=== PATIENT | female | born 1965 | race Caucasian/White ===

== ENCOUNTER 2018-09-24 05:36 | Inpatient (IN) | payer OTHER ==
[2018-09-24] MEDS ORDERED: ROCURONIUM 50 MG INJ (06:41)
[2018-09-24] MEDS ORDERED: MIDAZOLAM 1 MG/ML 2 ML INJ (06:41)
[2018-09-24] MEDS ORDERED: KETOROLAC 30 MG INJ (06:41)
[2018-09-24] MEDS ORDERED: CEFAZOLIN 1 GM INJ (06:41)
[2018-09-24] MEDS ORDERED: PROPOFOL 20 ML (06:41)
[2018-09-24] MEDS ORDERED: ONDANSETRON 4 MG INJ (06:41)
[2018-09-24] MEDS ORDERED: ONDANSETRON 4 MG INJ IV (07:00)
[2018-09-24] MEDS ORDERED: FENTAnyl 50 MCG/ML VIAL IV (07:00)
[2018-09-24] MEDS ORDERED: HYDROmorphONE 1 MG/5 ML IV SYRINGE IV (07:00)
[2018-09-24] MEDS: POLYMYXIN/BACITRACIN 1L IRRIG IRR (08:33)
[2018-09-24] MEDS: BUPIVACAINE 0.25%/EPI (SDV) 30 ML INJ (08:33)
[2018-09-24] MEDS ORDERED: HYDROCODONE/APAP (5/325) TAB PO ×2 (10:30)
[2018-09-24] MEDS ORDERED: DIPHENHYDRAMINE 50 MG CAP PO (10:30)
[2018-09-24] MEDS ORDERED: ZOLPIDEM 5 MG TAB PO (10:30)
[2018-09-24] MEDS ORDERED: ONDANSETRON INJ 6 MG in DEXTROSE 5% 50 ML IVPB (10:30)
[2018-09-24] MEDS: KETOROLAC 30 MG INJ IV ×3 (11:11→21:52)
[2018-09-24] MEDS: LACTATED RINGER'S 1,000 ML IV ×2 (11:12→18:39)
[2018-09-24] MEDS: METOCLOPRAMIDE 10 MG TAB PO ×3 (12:33→23:56)
[2018-09-24] MEDS: CEFAZOLIN 1 GM/50 ML (PMX) 50 ML IVPB ×2 (13:52→21:10)
[2018-09-25] MEDS: LACTATED RINGER'S 1,000 ML IV (03:10)
[2018-09-25] MEDS: KETOROLAC 30 MG INJ IV ×4 (04:39→21:21)
[2018-09-25 05:18] LABS: ADD MAN DIFF? NO
[2018-09-25 05:22] LABS: BASOPHILS % 0.4 % (0.0-2.0); EOSINOPHILS # 0.1 10^3/ul (0.0-0.5); EOSINOPHILS % 0.7 % (0.0-7.0); HEMATOCRIT 34.2 % (37.0-47.0); HEMOGLOBIN 10.9 g/dl (12.0-16.0); LYMPHOCYTES # 1.3 10^3/ul (0.8-2.9); LYMPHOCYTES % 19.1 % (15.0-51.0); MEAN CORPUSCULAR HEMOGLOBIN 30.6 pg (29.0-33.0); MEAN CORPUSCULAR HGB CONC 31.9 g/dl (32.0-37.0); MEAN CORPUSCULAR VOLUME 96.1 fl (82.0-101.0); MEAN PLATELET VOLUME 9.4 fl (7.4-10.4); MONOCYTE # 0.6 10^3/ul (0.3-0.9); NEUTROPHIL # 4.8 10^3/ul (1.6-7.5); NEUTROPHILS % 70.5 % (39.0-77.0); PLATELET COUNT 266 10^3/UL (140-415); RED BLOOD COUNT 3.56 10^6/ul (4.20-5.40); RED CELL DISTRIBUTION WIDTH 12.1 % (11.5-14.5)
[2018-09-25 05:22] LABS: WHITE BLOOD COUNT 6.9 10^3/ul (4.8-10.8)
[2018-09-25 05:36] LABS: ANION GAP 5 (5-13); BLOOD UREA NITROGEN 5 mg/dl (7-20); CARBON DIOXIDE 30 mmol/L (21-31); CHLORIDE 107 mmol/L (97-110); CREATININE 0.66 mg/dl (0.44-1.00); POTASSIUM 4.2 mmol/L (3.5-5.1); SODIUM 142 mmol/L (135-144)
[2018-09-25] MEDS: CEFAZOLIN 1 GM/50 ML (PMX) 50 ML IVPB (06:49)
[2018-09-25] MEDS: METOCLOPRAMIDE 10 MG TAB PO ×4 (06:50→22:59)
[2018-09-26] MEDS: KETOROLAC 30 MG INJ IV (03:54)
[2018-09-26] MEDS: METOCLOPRAMIDE 10 MG TAB PO (05:13)
== END 2018-09-26 12:20 | disposition home or self-care (01) | DRG 743 ==
LOC: REC 05:36 → MS1 11:12
PROC: 0JUC0JZ Supplement of Pelvic Region Subcutaneous Tissue and Fascia with Synthetic Substitute, Open Approach (ICD-10-PCS; principal; 2018-09-24 07:30)
PROC: 0UT97ZZ Resection of Uterus, Via Natural or Artificial Opening (ICD-10-PCS; 2018-09-24 07:30)
DX: N81.3 Complete uterovaginal prolapse (principal); N80.0 Endometriosis of uterus; D25.0 Submucous leiomyoma of uterus; D25.2 Subserosal leiomyoma of uterus; N39.46 Mixed incontinence
CPT/HCPCS: 80051; 82565; 84520; 85025; 86850; 86900; 86901; 86920; 87086; 88307; 93005

== ENCOUNTER 2018-09-30 10:31 | Observation (INO) | payer OTHER ==
[2018-09-30] MEDS: SOD CHLORIDE 0.9% 1,000 ML IV (10:47)
[2018-09-30] MEDS: SOD CHLORIDE 0.9% 100 ML (10:56)
[2018-09-30] MEDS: IODIXANOL LOCM 100 ML BTL (10:56)
[2018-09-30 11:05] LABS: ADD MAN DIFF? NO
[2018-09-30 11:08] LABS: WHITE BLOOD COUNT 11.1 10^3/ul (4.8-10.8)
[2018-09-30 11:08] LABS: BASOPHILS % 0.3 % (0.0-2.0); EOSINOPHILS # 0.2 10^3/ul (0.0-0.5); EOSINOPHILS % 1.9 % (0.0-7.0); HEMATOCRIT 36.8 % (37.0-47.0); HEMOGLOBIN 12.1 g/dl (12.0-16.0); LYMPHOCYTES # 1.3 10^3/ul (0.8-2.9); LYMPHOCYTES % 11.9 % (15.0-51.0); MEAN CORPUSCULAR HEMOGLOBIN 31.3 pg (29.0-33.0); MEAN CORPUSCULAR HGB CONC 32.9 g/dl (32.0-37.0); MEAN CORPUSCULAR VOLUME 95.1 fl (82.0-101.0); MEAN PLATELET VOLUME 9.2 fl (7.4-10.4); MONOCYTE # 0.7 10^3/ul (0.3-0.9); MONOCYTES % 6.6 % (0.0-11.0); NEUTROPHIL # 8.8 10^3/ul (1.6-7.5); NEUTROPHILS % 78.9 % (39.0-77.0); PLATELET COUNT 331 10^3/UL (140-415); RED BLOOD COUNT 3.87 10^6/ul (4.20-5.40); RED CELL DISTRIBUTION WIDTH 12.2 % (11.5-14.5)
[2018-09-30 11:26] LABS: ANION GAP 8 (5-13); BLOOD UREA NITROGEN 10 mg/dl (7-20); CALCIUM 9.2 mg/dl (8.4-10.2); CARBON DIOXIDE 29 mmol/L (21-31); CHLORIDE 103 mmol/L (97-110); CREATININE 0.62 mg/dl (0.44-1.00); Estimated GFR > 60 mL/min (>60); GLUCOSE 115 mg/dl (70-220); POTASSIUM 4.5 mmol/L (3.5-5.1); SODIUM 140 mmol/L (135-144)
[2018-09-30 11:43] LABS: INR 0.88; PT RATIO 0.9
[2018-09-30 11:44] LABS: PARTIAL THROMBOPLASTIN TIME 31.9 Sec (23.0-35.0)
[2018-09-30] MEDS ORDERED: ONDANSETRON 4 MG INJ IV (14:00)
[2018-09-30] MEDS ORDERED: ACETAMINOPHEN 325 MG TAB PO ×2 (14:00→17:30)
[2018-09-30] MEDS ORDERED: ZOLPIDEM 5 MG TAB PO (17:30)
[2018-09-30] MEDS ORDERED: HYDROCODONE/APAP (5/325) TAB PO (17:30)
[2018-10-01 05:51] LABS: ADD MAN DIFF? NO
[2018-10-01 06:01] LABS: BASOPHILS % 0.5 % (0.0-2.0); EOSINOPHILS # 0.3 10^3/ul (0.0-0.5); EOSINOPHILS % 3.6 % (0.0-7.0); HEMATOCRIT 31.5 % (37.0-47.0); HEMOGLOBIN 10.1 g/dl (12.0-16.0); LYMPHOCYTES # 1.8 10^3/ul (0.8-2.9); LYMPHOCYTES % 23.7 % (15.0-51.0); MEAN CORPUSCULAR HEMOGLOBIN 30.7 pg (29.0-33.0); MEAN CORPUSCULAR HGB CONC 32.1 g/dl (32.0-37.0); MEAN CORPUSCULAR VOLUME 95.7 fl (82.0-101.0); MEAN PLATELET VOLUME 9.2 fl (7.4-10.4); MONOCYTE # 0.5 10^3/ul (0.3-0.9); MONOCYTES % 6.6 % (0.0-11.0); NEUTROPHILS % 65.2 % (39.0-77.0); PLATELET COUNT 296 10^3/UL (140-415); RED BLOOD COUNT 3.29 10^6/ul (4.20-5.40); RED CELL DISTRIBUTION WIDTH 12.1 % (11.5-14.5)
[2018-10-01 06:01] LABS: WHITE BLOOD COUNT 7.7 10^3/ul (4.8-10.8)
[2018-10-01 12:25] LABS: ADD UMIC YES; UR ASCORBIC ACID NEGATIVE (NEGATIVE); UR BACTERIA FEW /HPF (NONE SEEN); UR BILIRUBIN (Dip) NEGATIVE (NEGATIVE); UR BLOOD (Dip) 3+ mg/dL (NEGATIVE); UR CLARITY SLIGHTLY CLOUDY (CLEAR); UR COLOR STRAW (YELLOW); UR GLUCOSE (Dip) NEGATIVE (NEGATIVE); UR KETONES (Dip) NEGATIVE (NEGATIVE); UR LEUKOCYTE ESTERASE (Dip) 3+ Leu/ul (NEGATIVE); UR NITRITE (Dip) NEGATIVE (NEGATIVE); UR RBC 6 /HPF (0-5); UR SPECIFIC GRAVITY (Dip) 1.006 (1.003-1.030); UR SQUAMOUS EPITHELIAL CELL FEW /HPF (FEW); UR TOTAL PROTEIN (Dip) NEGATIVE (NEGATIVE); UR UROBILINOGEN (Dip) NEGATIVE (NEGATIVE); UR WBC 39 /HPF (0-5)
== END 2018-10-01 12:10 | disposition home or self-care (01) ==
LOC: E/R 10:31 → PP2 13:50
DX: N99.820 Postprocedural hemorrhage of a genitourinary system organ or structure following a genitourinary system procedure (principal)
CPT/HCPCS: 36415; 74177; 80048; 81001; 84703; 85025; 85610; 85730; 86850; 86900; 86901; 87086; 96360; 96361; 99285-25; G0378